=== PATIENT | female | born 1965 | race African-American/Black ===

== ENCOUNTER 2020-07-21 14:45 | Outpatient (CLI) | payer MEDICARE, MEDICAID | END 2020-07-21 14:46 | disposition home or self-care (01) | LOC: CSHULT 14:45 | PROVIDERS: ATTEND Physician Assistant | DX: E04.1 Nontoxic single thyroid nodule (principal) | CPT/HCPCS: 76536 ==

== ENCOUNTER 2020-08-19 20:42 | Emergency (ER) | payer MEDICARE, MEDICAID ==
[2020-08-19 21:25] LABS: #Eosinphils 0.4 10x3/uL (0.0-0.5); #Monocytes 0.4 10x3/uL (0.0-1.1); #Neutrophils 3.1 10x3/uL (1.5-8.4); %Basophils 0.5 % (0.0-2.0); %Eosinophils 7.1 % (0.0-6.0); %Lymphocytes 32.8 % (18.0-47.0); %Monocytes 7.3 % (0.0-10.0); Hemoglobin 12.5 g/dL (12.0-15.5); Mean Corpuscular HGB CONC 34.2 g/dL (32.0-36.0); Mean Corpuscular Hemoglobin 31.3 pg (27.0-33.0); Mean Corpuscular Volume 91.5 fl (81.6-98.3); Mean Platelet Volume 9.4 fl (7.4-10.4); Platelet Count 271 10x3/uL (150-450)
[2020-08-19 21:42] LABS: ALT (SGPT) 23 U/L (8-55); AST (SGOT) 19 U/L (5-34); Albumin 4.3 g/dL (3.5-5.0); Alkaline Phosphatase 56 U/L (40-110); Anion Gap 15 mmol/L (10-20); BUN (Urea Nitrogen) 10 mg/dL (9.8-20.1); Bilirubin, Total 0.2 mg/dL (0.2-1.2); Calc. Creatinine Clearance 0 mL/min (70-130); Calcium 9.1 mg/dL (7.8-10.44); Carbon Dioxide 24 mmol/L (22-29); Chloride 106 mmol/L (98-107); Globulin 3.5 g/dL (2.4-3.5); Glucose 166 mg/dL (70-105); Potassium 3.5 mmol/L (3.5-5.1); Protein, Total 7.8 g/dL (6.0-8.3); Sodium 141 mmol/L (136-145)
[2020-08-19] MEDS ORDERED: Ketorolac Tromethamine 15 MG/ML VIAL ONE (21:49)
== END 2020-08-19 23:20 | disposition home or self-care (01) ==
LOC: CSHERS 20:42
DX: M79.605 Pain in left leg (principal); M79.604 Pain in right leg; G35 Multiple sclerosis; E78.5 Hyperlipidemia, unspecified; I10 Essential (primary) hypertension; J45.909 Unspecified asthma, uncomplicated; Z79.899 Other long term (current) drug therapy
CPT/HCPCS: 71045; 80053; 83880; 84484; 85025; 93005; 94760; 96374; J1885

== ENCOUNTER 2021-02-10 17:20 | Emergency (ER) | payer MEDICARE, MEDICAID ==
[2021-02-10 19:34] LABS: #Eosinphils 0.2 10x3/uL (0.0-0.5); #Monocytes 0.5 10x3/uL (0.0-1.1); %Basophils 0.3 % (0.0-2.0); %Eosinophils 3.2 % (0.0-6.0); %Lymphocytes 24.4 % (18.0-47.0); %Neutrophils 65.8 % (40.0-75.0); Hemoglobin 12.5 g/dL (12.0-15.5); Mean Corpuscular HGB CONC 33.5 g/dL (32.0-36.0); Mean Corpuscular Hemoglobin 30.5 pg (27.0-33.0); Mean Platelet Volume 9.4 fl (7.4-10.4); Platelet Count 307 10x3/uL (150-450); RBC Distribution Width 13.2 % (11.5-14.5); White Blood Cell (WBC) Count 7.5 10x3/uL (3.5-10.5)
[2021-02-10 19:41] LABS: ALT (SGPT) 19 U/L (8-55); AST (SGOT) 17 U/L (5-34); Albumin 4.4 g/dL (3.5-5.0); Alkaline Phosphatase 72 U/L (40-110); Anion Gap 14 mmol/L (10-20); BUN (Urea Nitrogen) 10 mg/dL (9.8-20.1); Bilirubin, Total 0.2 mg/dL (0.2-1.2); Calc. Creatinine Clearance 0 mL/min (70-130); Calcium 9.4 mg/dL (7.8-10.44); Carbon Dioxide 26 mmol/L (22-29); Chloride 105 mmol/L (98-107); Globulin 3.3 g/dL (2.4-3.5); Glucose 95 mg/dL (70-105); Lipase 9 U/L (8-78); Potassium 4.1 mmol/L (3.5-5.1); Protein, Total 7.7 g/dL (6.0-8.3); Sodium 141 mmol/L (136-145)
[2021-02-10 20:25] LABS: Bilirubin Neg (Negative); Blood, Urine Negative (Negative); Clarity Clear (Clear); Glucose, Urine (Dipstick) Normal (Negative); Ketone, Urine Negative (Negative); Leukocyte Negative (Negative); Nitrite Negative (Negative); Protein, Urine (Dipstick) 30 mg/dl (Neg-Trace); Specific Gravity, Urine 1.015 (1.002-1.036); Urobilinogen Normal mg/dL (Less than 2); pH, Urine 6.5 (5.0-9.0)
[2021-02-10 20:36] LABS: Bacteria/HPF None Seen HPF (None Seen); Mucous/LPF Rare LPF (<2+); RBC/HPF 0-3 HPF (0-3); Squamous Epithelial 0-3 HPF (0-3); WBC/HPF 0-3 HPF (0-3)
== END 2021-02-10 21:51 | disposition home or self-care (01) ==
LOC: CSHERS 17:20
DX: K11.20 Sialoadenitis, unspecified (principal); G35 Multiple sclerosis; E78.5 Hyperlipidemia, unspecified; I10 Essential (primary) hypertension; J45.909 Unspecified asthma, uncomplicated; M32.9 Systemic lupus erythematosus, unspecified; Z79.899 Other long term (current) drug therapy
CPT/HCPCS: 36415; 74177; 80053; 81003; 81015; 83690; 85025; 87081; 87430

== ENCOUNTER 2021-03-15 12:44 | Emergency (ER) | payer MEDICARE, MEDICAID ==
[2021-03-15] MEDS ORDERED: Dexamethasone 10 MG/ML VIAL ONE (13:04)
[2021-03-15] MEDS ORDERED: Dexamethasone 4 mg/ml Vial ONE (13:04)
[2021-03-15] MEDS ORDERED: Ventolin HFA Inhaler 60 PUFF INHALER ONE (13:05)
== END 2021-03-15 14:13 | disposition home or self-care (01) ==
LOC: CSHERS 12:44
DX: J45.909 Unspecified asthma, uncomplicated (principal); I10 Essential (primary) hypertension; E78.5 Hyperlipidemia, unspecified; M32.9 Systemic lupus erythematosus, unspecified; G35 Multiple sclerosis; Z79.899 Other long term (current) drug therapy
CPT/HCPCS: 71045; 93005; 96372; J1100; J7620

== ENCOUNTER 2021-07-02 15:47 | Emergency (ER) | payer MEDICAID, MEDICARE ==
[2021-07-02 16:45] LABS: #Eosinphils 0.1 10x3/uL (0.0-0.5); #Monocytes 0.4 10x3/uL (0.0-1.1); #Neutrophils 3.5 10x3/uL (1.5-8.4); %Basophils 0.5 % (0.0-2.0); %Lymphocytes 33.7 % (18.0-47.0); %Monocytes 6.1 % (0.0-10.0); %Neutrophils 57.5 % (40.0-75.0); Hemoglobin 13.9 g/dL (12.0-15.5); Mean Corpuscular HGB CONC 33.7 g/dL (32.0-36.0); Mean Corpuscular Volume 89.2 fl (81.6-98.3); Mean Platelet Volume 9.4 fl (7.4-10.4); Platelet Count 332 10x3/uL (150-450); RBC Distribution Width 13.1 % (11.5-14.5); Red Blood Cell (RBC) Count 4.63 10x6/uL (3.90-5.03)
[2021-07-02] MEDS ORDERED: methylPREDNISolone Sod Succ/PF 125 MG/2 ML VIAL ONE (16:49)
[2021-07-02] MEDS ORDERED: Ketorolac Tromethamine 30 MG/ML VIAL ONE (16:50)
[2021-07-02] MEDS ORDERED: Morphine 4 MG/ML VIAL ONE (16:50)
[2021-07-02 16:55] LABS: ALT (SGPT) 22 U/L (8-55); AST (SGOT) 21 U/L (5-34); Albumin 4.4 g/dL (3.5-5.0); Alkaline Phosphatase 66 U/L (40-110); Anion Gap 15 mmol/L (10-20); BUN (Urea Nitrogen) 11 mg/dL (9.8-20.1); Bilirubin, Total 0.3 mg/dL (0.2-1.2); Calc. Creatinine Clearance 0 mL/min (70-130); Calcium 9.7 mg/dL (7.8-10.44); Carbon Dioxide 21 mmol/L (22-29); Chloride 108 mmol/L (98-107); Globulin 3.9 g/dL (2.4-3.5); Glucose 106 mg/dL (70-105); Potassium 3.9 mmol/L (3.5-5.1); Protein, Total 8.3 g/dL (6.0-8.3); Sodium 140 mmol/L (136-145)
[2021-07-02 16:57] LABS: CK (CPK) 244 U/L (29-168); CRP (Inflammatory) Less than 0.50 mg/dL (= or < 0.5)
[2021-07-02 17:12] LABS: BHCG - Serum Negative (NEGATIVE); Pregs Control Background? CLEAR/WHITE (CLR/WHITE); Pregs Control Bar Appear? YES (CONTROL BAR)
== END 2021-07-02 18:19 | disposition home or self-care (01) ==
LOC: CSHERS 15:47
DX: G35 Multiple sclerosis (principal); E78.5 Hyperlipidemia, unspecified; I10 Essential (primary) hypertension
CPT/HCPCS: 36415; 80053; 82550; 83605; 84703; 85025; 86140; 93005; 96374; 96375; J1885; J2270; J2930

== ENCOUNTER 2022-01-08 15:37 | Emergency (ER) | payer MEDICARE, MEDICAID | END 2022-01-08 16:39 | disposition left against medical advice (07) | LOC: CSHERS 15:37 | DX: Z53.21 Procedure and treatment not carried out due to patient leaving prior to being seen by health care provider (principal) ==

== ENCOUNTER 2022-01-08 17:03 | Emergency (ER) | payer MEDICARE, MEDICAID | END 2022-01-08 18:35 | disposition home or self-care (01) | LOC: CSHERS 17:03 | DX: S40.862A Insect bite (nonvenomous) of left upper arm, initial encounter (principal); S40.861A Insect bite (nonvenomous) of right upper arm, initial encounter; W57.XXXA Bitten or stung by nonvenomous insect and other nonvenomous arthropods, initial encounter | CPT/HCPCS: 99282 ==

== ENCOUNTER 2022-01-28 14:25 | Inpatient (IN) | payer OTHER, MEDICAID ==
[2022-01-28 15:14] LABS: #Eosinphils 0.2 10x3/uL (0.0-0.5); #Monocytes 0.3 10x3/uL (0.0-1.1); #Neutrophils 3.8 10x3/uL (1.5-8.4); %Basophils 0.6 % (0.0-2.0); %Eosinophils 3.8 % (0.0-6.0); %Lymphocytes 29.8 % (18.0-47.0); %Monocytes 5.4 % (0.0-10.0); %Neutrophils 60.2 % (40.0-75.0); Hemoglobin 13.5 g/dL (12.0-15.5); Mean Corpuscular HGB CONC 34.5 g/dL (32.0-36.0); Mean Corpuscular Volume 89.7 fl (81.6-98.3); Mean Platelet Volume 9.3 fl (7.4-10.4); Platelet Count 307 10x3/uL (150-450); RBC Distribution Width 12.9 % (11.5-14.5); Red Blood Cell (RBC) Count 4.36 10x6/uL (3.90-5.03); White Blood Cell (WBC) Count 6.3 10x3/uL (3.5-10.5)
[2022-01-28] MEDS ORDERED: Morphine 4 MG/ML VIAL ONE ×2 (15:26→16:40)
[2022-01-28] MEDS ORDERED: Ondansetron PF 4 MG/2 ML Vial ONE (15:26)
[2022-01-28 15:33] LABS: ALT (SGPT) 14 U/L (8-55); AST (SGOT) 18 U/L (5-34); Albumin 4.2 g/dL (3.5-5.0); Alkaline Phosphatase 60 U/L (40-110); Anion Gap 12 mmol/L (10-20); BUN (Urea Nitrogen) 13 mg/dL (9.8-20.1); Bilirubin, Total 0.3 mg/dL (0.2-1.2); Calc. Creatinine Clearance 0 mL/min (70-130); Calcium 9.7 mg/dL (7.8-10.44); Carbon Dioxide 25 mmol/L (22-29); Chloride 107 mmol/L (98-107); Estimated GFR 68; Globulin 3.2 g/dL (2.4-3.5); Glucose 105 mg/dL (70-105); Potassium 3.9 mmol/L (3.5-5.1); Protein, Total 7.4 g/dL (6.0-8.3); Sodium 140 mmol/L (136-145)
[2022-01-28] MEDS ORDERED: methylPREDNISolone Sod Succ 1 GM in Sodium Chloride 0.9% 250 ML 250 ML IVPB SCH (16:00)
[2022-01-28] MEDS ORDERED: Ketorolac Tromethamine 30 MG/ML VIAL ONE (16:40)
[2022-01-28] MEDS ORDERED: Acetaminophen 650 MG Suppository PR PRN (18:07)
[2022-01-28] MEDS ORDERED: Ondansetron PF 4 MG/2 ML Vial IVP PRN (18:07)
[2022-01-28] MEDS ORDERED: Ondansetron ODT 4 MG TAB PO PRN (18:07)
[2022-01-28] MEDS ORDERED: Acetaminophen 325 MG TAB PO PRN (18:07)
[2022-01-28] MEDS ORDERED: Bisacodyl 5 MG TAB PO PRN (18:07)
[2022-01-28] MEDS ORDERED: Senokot S 8.6-50 MG TAB PO PRN (18:07)
[2022-01-28] MEDS ORDERED: Albuterol Sulfate 2.5 mg/3 ml Neb EZPAP PRN (18:27)
[2022-01-28] MEDS ORDERED: HYDROcodone/Acetaminophen 10/325 mg Tablet ONE (20:23)
[2022-01-28 20:38] LABS: Bilirubin Neg (Negative); Blood, Urine Negative (Negative); Clarity Clear (Clear); Glucose, Urine (Dipstick) Normal (Negative); Ketone, Urine Negative (Negative); Leukocyte Negative (Negative); Nitrite Negative (Negative); Protein, Urine (Dipstick) 15 mg/dl (Neg-Trace); Specific Gravity, Urine 1.015 (1.005-1.030); Urobilinogen Normal mg/dL (Less than 2); pH, Urine 6.5 (5.0-9.0)
[2022-01-29] MEDS ORDERED: Atorvastatin Calcium 10 MG TAB ONE (01:32)
[2022-01-29] MEDS ORDERED: Acetaminophen 325 MG TAB ONE (01:34)
[2022-01-29] MEDS ORDERED: Gabapentin 300 MG CAP ONE ×2 (01:34→07:50)
[2022-01-29] MEDS: Gabapentin 300 MG CAP PO SCH ×4 (03:00→22:30)
[2022-01-29] MEDS: DULoxetine 30 MG CAP PO SCH ×2 (03:00→22:00)
[2022-01-29] MEDS: Atorvastatin Calcium 10 MG TAB PO SCH ×2 (03:00→22:00)
[2022-01-29] MEDS: tiZANidine HCl 4 MG TAB PO SCH ×4 (03:00→22:00)
[2022-01-29 04:10] LABS: Anion Gap 14 mmol/L (10-20); BUN (Urea Nitrogen) 13 mg/dL (9.8-20.1); Calc. Creatinine Clearance 0 mL/min (70-130); Calcium 9.2 mg/dL (7.8-10.44); Carbon Dioxide 22 mmol/L (22-29); Chloride 106 mmol/L (98-107); Estimated GFR 65; Glucose 237 mg/dL (70-105); Potassium 4.3 mmol/L (3.5-5.1); Sodium 138 mmol/L (136-145)
[2022-01-29 04:23] LABS: Hemoglobin 12.5 g/dL (12.0-15.5); Mean Corpuscular HGB CONC 34.5 g/dL (32.0-36.0); Mean Corpuscular Hemoglobin 31.2 pg (27.0-33.0); Mean Corpuscular Volume 90.3 fl (81.6-98.3); Mean Platelet Volume 9.4 fl (7.4-10.4); Platelet Count 290 10x3/uL (150-450); RBC Distribution Width 12.8 % (11.5-14.5); Red Blood Cell (RBC) Count 4.01 10x6/uL (3.90-5.03); White Blood Cell (WBC) Count 8.7 10x3/uL (3.5-10.5)
[2022-01-29 06:47] LABS: MDiff Complete? YES
[2022-01-29 06:50] LABS: Lymphocytes 9 % (21-51); Neutrophil 90 % (42-75); Reactive Lymphocytes 1 % (0-10)
[2022-01-29 06:52] LABS: Diff Comment (RBC Morph SCRN) NORMAL; Platelet Morphology Comment Appears Adequate
[2022-01-29] MEDS ORDERED: Enoxaparin Sodium 40 MG/0.4 ML SYRINGE ONE (07:47)
[2022-01-29] MEDS ORDERED: Amlodipine 5 MG TAB ONE (07:48)
[2022-01-29] MEDS: Amlodipine 10 MG TAB PO SCH (08:02)
[2022-01-29] MEDS: Hydrochlorothiazide 25 MG TAB PO SCH (08:03)
[2022-01-29] MEDS: Enoxaparin Sodium 40 MG/0.4 ML SYRINGE SC SCH (08:03)
[2022-01-29] MEDS ORDERED: methylPREDNISolone Sod Succ 1 GM in Sodium Chloride 0.9% 250 ML 250 ML IVPB SCH (09:00)
[2022-01-29] MEDS: HYDROcodone/Acetaminophen 5/325 mg Tablet PO PRN ×2 (11:36→17:47)
[2022-01-29] MEDS ORDERED: Magnevist 469MG/ML 20 ML VIAL ONE (14:20)
[2022-01-29] MEDS ORDERED: FLU VACC QS2022-23(6MOS UP)/PF 60 MCG/0.5 ML SYRINGE IM ONE (15:30)
[2022-01-29] MEDS: methylPREDNISolone Sod Succ 1 GM in Sodium Chloride 0.9% 250 ML 250 ML IVPB SCH (17:41)
[2022-01-29] MEDS ORDERED: Ketorolac Tromethamine 30 MG/ML VIAL IVP SCH (20:15)
[2022-01-29 20:58] VITALS: BMI 36.1
[2022-01-30] MEDS: HYDROcodone/Acetaminophen 5/325 mg Tablet PO PRN (04:13)
[2022-01-30 04:49] LABS: Anion Gap 16 mmol/L (10-20); BUN (Urea Nitrogen) 14 mg/dL (9.8-20.1); Calc. Creatinine Clearance 108 mL/min (70-130); Calcium 9.6 mg/dL (7.8-10.44); Carbon Dioxide 23 mmol/L (22-29); Chloride 105 mmol/L (98-107); Estimated GFR 79; Glucose 165 mg/dL (70-105); Potassium 4.1 mmol/L (3.5-5.1); Sodium 140 mmol/L (136-145)
[2022-01-30 04:54] LABS: Hemoglobin 12.5 g/dL (12.0-15.5); Mean Corpuscular HGB CONC 34.5 g/dL (32.0-36.0); Mean Corpuscular Volume 89.8 fl (81.6-98.3); Platelet Count 317 10x3/uL (150-450); RBC Distribution Width 12.7 % (11.5-14.5); Red Blood Cell (RBC) Count 4.03 10x6/uL (3.90-5.03); White Blood Cell (WBC) Count 23.6 10x3/uL (3.5-10.5)
[2022-01-30 06:02] LABS: MDiff Complete? YES
[2022-01-30 06:09] LABS: Band 2 % (5-11); Lymphocytes 2 % (21-51); Monocytes 2 % (0-10); Neutrophil 94 % (42-75)
[2022-01-30 06:10] LABS: Diff Comment (RBC Morph SCRN) NORMAL; Platelet Morphology Comment Appears Adequate
[2022-01-30] MEDS ORDERED: Ibuprofen 400 MG TAB PO SCH (06:45)
[2022-01-30] MEDS: Ketorolac Tromethamine 10 MG TAB PO PRN ×3 (09:17→21:52)
[2022-01-30] MEDS: Gabapentin 300 MG CAP PO SCH ×3 (09:17→21:55)
[2022-01-30] MEDS: Hydrochlorothiazide 25 MG TAB PO SCH (09:18)
[2022-01-30] MEDS: Amlodipine 10 MG TAB PO SCH (09:18)
[2022-01-30] MEDS: tiZANidine HCl 4 MG TAB PO SCH ×3 (09:18→21:51)
[2022-01-30] MEDS: Enoxaparin Sodium 40 MG/0.4 ML SYRINGE SC SCH (09:19)
[2022-01-30] MEDS: methylPREDNISolone Sod Succ 1 GM in Sodium Chloride 0.9% 250 ML 250 ML IVPB SCH (17:35)
[2022-01-30] MEDS: DULoxetine 30 MG CAP PO SCH (21:51)
[2022-01-30] MEDS: Atorvastatin Calcium 10 MG TAB PO SCH (21:52)
[2022-01-30] MEDS ORDERED: Zolpidem Tartrate 5 MG TAB PO SCH (22:30)
[2022-01-30] MEDS ORDERED: hydrOXYzine 10 MG TAB PO SCH (22:30)
[2022-01-31] MEDS: HYDROcodone/Acetaminophen 5/325 mg Tablet PO PRN ×2 (04:20→21:38)
[2022-01-31 06:50] LABS: #Monocytes 0.2 10x3/uL (0.0-1.1); #Neutrophils 18.1 10x3/uL (1.5-8.4); %Basophils 0.1 % (0.0-2.0); %Lymphocytes 5.2 % (18.0-47.0); %Neutrophils 92.3 % (40.0-75.0); Hemoglobin 13.1 g/dL (12.0-15.5); Mean Corpuscular HGB CONC 34.9 g/dL (32.0-36.0); Mean Corpuscular Volume 88.7 fl (81.6-98.3); Mean Platelet Volume 9.7 fl (7.4-10.4); Platelet Count 311 10x3/uL (150-450); RBC Distribution Width 12.5 % (11.5-14.5); Red Blood Cell (RBC) Count 4.23 10x6/uL (3.90-5.03); White Blood Cell (WBC) Count 19.6 10x3/uL (3.5-10.5)
[2022-01-31 06:52] LABS: Anion Gap 12 mmol/L (10-20); BUN (Urea Nitrogen) 16 mg/dL (9.8-20.1); Calc. Creatinine Clearance 112 mL/min (70-130); Carbon Dioxide 30 mmol/L (22-29); Chloride 99 mmol/L (98-107); Estimated GFR 83; Glucose 153 mg/dL (70-105); Potassium 4.3 mmol/L (3.5-5.1); Sodium 137 mmol/L (136-145)
[2022-01-31] MEDS: tiZANidine HCl 4 MG TAB PO SCH ×3 (08:45→21:37)
[2022-01-31] MEDS: Hydrochlorothiazide 25 MG TAB PO SCH (08:45)
[2022-01-31] MEDS: Gabapentin 300 MG CAP PO SCH ×3 (08:45→21:37)
[2022-01-31] MEDS: Enoxaparin Sodium 40 MG/0.4 ML SYRINGE SC SCH (08:45)
[2022-01-31] MEDS: Amlodipine 10 MG TAB PO SCH (08:45)
[2022-01-31] MEDS: Ketorolac Tromethamine 10 MG TAB PO PRN ×3 (08:53→21:39)
[2022-01-31] MEDS: methylPREDNISolone Sod Succ 1 GM in Sodium Chloride 0.9% 250 ML 250 ML IVPB SCH (16:05)
[2022-01-31] MEDS ORDERED: hydrOXYzine 10 MG TAB PO SCH (21:00)
[2022-01-31] MEDS ORDERED: Zolpidem Tartrate 5 MG TAB PO SCH (21:00)
[2022-01-31] MEDS: DULoxetine 30 MG CAP PO SCH (21:38)
[2022-01-31] MEDS: Atorvastatin Calcium 10 MG TAB PO SCH (21:38)
[2022-02-01] MEDS: HYDROcodone/Acetaminophen 5/325 mg Tablet PO PRN ×3 (04:19→14:59)
[2022-02-01] MEDS: Ketorolac Tromethamine 10 MG TAB PO PRN ×2 (04:20→10:26)
[2022-02-01 04:28] LABS: Anion Gap 14 mmol/L (10-20); BUN (Urea Nitrogen) 22 mg/dL (9.8-20.1); Calc. Creatinine Clearance 94 mL/min (70-130); Calcium 9.4 mg/dL (7.8-10.44); Carbon Dioxide 29 mmol/L (22-29); Chloride 97 mmol/L (98-107); Estimated GFR 67; Glucose 234 mg/dL (70-105); Sodium 136 mmol/L (136-145)
[2022-02-01 04:55] LABS: #Monocytes 0.3 10x3/uL (0.0-1.1); #Neutrophils 14.3 10x3/uL (1.5-8.4); %Basophils 0.2 % (0.0-2.0); %Monocytes 2.1 % (0.0-10.0); %Neutrophils 89.7 % (40.0-75.0); Hemoglobin 12.7 g/dL (12.0-15.5); Mean Corpuscular HGB CONC 35.4 g/dL (32.0-36.0); Mean Corpuscular Hemoglobin 31.3 pg (27.0-33.0); Mean Corpuscular Volume 88.4 fl (81.6-98.3); Mean Platelet Volume 10.2 fl (7.4-10.4); Platelet Count 317 10x3/uL (150-450); RBC Distribution Width 12.1 % (11.5-14.5); Red Blood Cell (RBC) Count 4.06 10x6/uL (3.90-5.03); White Blood Cell (WBC) Count 15.9 10x3/uL (3.5-10.5)
[2022-02-01] MEDS: tiZANidine HCl 4 MG TAB PO SCH ×2 (10:09→14:59)
[2022-02-01] MEDS: Gabapentin 300 MG CAP PO SCH ×2 (10:09→14:58)
[2022-02-01] MEDS: Amlodipine 10 MG TAB PO SCH (10:09)
[2022-02-01] MEDS: Hydrochlorothiazide 25 MG TAB PO SCH (10:10)
[2022-02-01] MEDS: Enoxaparin Sodium 40 MG/0.4 ML SYRINGE SC SCH (10:10)
[2022-02-01 13:10] VITALS: TEMP 98.8
[2022-02-01 14:17] VITALS: BP 169/100
== END 2022-02-01 16:50 | disposition home or self-care (01) | DRG 60 ==
LOC: CSHERS 14:25 → CSHERHOLD 01-29 01:18 → CSHTELE 01-29 09:21
PROVIDERS: ADMIT Family Medicine; ATTEND Internal Medicine
DX: G35 Multiple sclerosis (principal); I10 Essential (primary) hypertension; J45.909 Unspecified asthma, uncomplicated; E66.9 Obesity, unspecified; R53.1 Weakness; E78.5 Hyperlipidemia, unspecified; F41.9 Anxiety disorder, unspecified; M79.2 Neuralgia and neuritis, unspecified; R29.898 Other symptoms and signs involving the musculoskeletal system; F32.9 Major depressive disorder, single episode, unspecified; R73.9 Hyperglycemia, unspecified; D72.829 Elevated white blood cell count, unspecified; Z20.822 Contact with and (suspected) exposure to COVID-19; Z90.710 Acquired absence of both cervix and uterus; Z88.5 Allergy status to narcotic agent; Z98.890 Other specified postprocedural states; Z98.51 Tubal ligation status; Z79.899 Other long term (current) drug therapy; Z68.36 Body mass index [BMI] 36.0-36.9, adult; Z98.1 Arthrodesis status; Z90.49 Acquired absence of other specified parts of digestive tract; Z88.8 Allergy status to other drugs, medicaments and biological substances; Z82.49 Family history of ischemic heart disease and other diseases of the circulatory system; Z82.5 Family history of asthma and other chronic lower respiratory diseases
CPT/HCPCS: 36415; 36416; 70450; 70553; 71045; 80048; 80053; 81003; 84702; 85025; 87077; 87086; 94760; 96374; 96375; 96376; A9579; J1650; J1885; J2270; J2405; J2930; J7050; U0003; U0005

== ENCOUNTER 2022-02-04 17:00 | Emergency (ER) | payer MEDICARE, MEDICAID ==
[2022-02-04 17:46] LABS: #Eosinphils 0.3 10x3/uL (0.0-0.5); #Monocytes 0.6 10x3/uL (0.0-1.1); #Neutrophils 5.6 10x3/uL (1.5-8.4); %Basophils 0.3 % (0.0-2.0); %Eosinophils 3.1 % (0.0-6.0); %Lymphocytes 28.1 % (18.0-47.0); %Neutrophils 61.3 % (40.0-75.0); Hemoglobin 12.8 g/dL (12.0-15.5); Mean Corpuscular HGB CONC 35.2 g/dL (32.0-36.0); Mean Corpuscular Hemoglobin 31.4 pg (27.0-33.0); Mean Corpuscular Volume 89.2 fl (81.6-98.3); Platelet Count 312 10x3/uL (150-450); RBC Distribution Width 12.8 % (11.5-14.5); Red Blood Cell (RBC) Count 4.08 10x6/uL (3.90-5.03); White Blood Cell (WBC) Count 9.1 10x3/uL (3.5-10.5)
[2022-02-04 18:00] LABS: ALT (SGPT) 36 U/L (8-55); AST (SGOT) 19 U/L (5-34); Albumin 3.9 g/dL (3.5-5.0); Alkaline Phosphatase 60 U/L (40-110); Anion Gap 17 mmol/L (10-20); BUN (Urea Nitrogen) 14 mg/dL (9.8-20.1); Bilirubin, Total 0.2 mg/dL (0.2-1.2); Calc. Creatinine Clearance 0 mL/min (70-130); Calcium 9.3 mg/dL (7.8-10.44); Carbon Dioxide 26 mmol/L (22-29); Chloride 104 mmol/L (98-107); Estimated GFR 72; Globulin 3.1 g/dL (2.4-3.5); Glucose 140 mg/dL (70-105); Potassium 3.5 mmol/L (3.5-5.1); Sodium 143 mmol/L (136-145)
[2022-02-04] MEDS ORDERED: HYDROcodone/Acetaminophen 10/325 mg Tablet ONE (19:22)
[2022-02-04] MEDS ORDERED: methylPREDNISolone Sod Succ 1,000 MG in Sodium Chloride 0.9% 100 ML IVPB SCH (20:45)
== END 2022-02-04 20:45 | disposition home or self-care (01) ==
LOC: CSHERS 17:00
DX: G35 Multiple sclerosis (principal); I10 Essential (primary) hypertension; E78.5 Hyperlipidemia, unspecified; F17.290 Nicotine dependence, other tobacco product, uncomplicated
CPT/HCPCS: 80053; 85025; 94760; J2930; J3490

== ENCOUNTER 2022-02-18 07:51 | Emergency (ER) | payer OTHER, MEDICAID ==
[2022-02-18] MEDS ORDERED: methylPREDNISolone Sod Succ/PF 125 MG/2 ML VIAL ONE (09:21)
[2022-02-18] MEDS ORDERED: Morphine 4 MG/ML VIAL ONE (09:22)
[2022-02-18 09:51] LABS: #Eosinphils 0.1 10x3/uL (0.0-0.5); #Monocytes 0.7 10x3/uL (0.0-1.1); #Neutrophils 8.7 10x3/uL (1.5-8.4); %Basophils 0.2 % (0.0-2.0); %Eosinophils 0.5 % (0.0-6.0); %Lymphocytes 19.4 % (18.0-47.0); %Monocytes 6.1 % (0.0-10.0); %Neutrophils 73.2 % (40.0-75.0); Mean Corpuscular HGB CONC 35.1 g/dL (32.0-36.0); Mean Corpuscular Hemoglobin 30.9 pg (27.0-33.0); Mean Corpuscular Volume 88.1 fl (81.6-98.3); Mean Platelet Volume 9.1 fl (7.4-10.4); Platelet Count 298 10x3/uL (150-450); RBC Distribution Width 13.3 % (11.5-14.5); Red Blood Cell (RBC) Count 4.53 10x6/uL (3.90-5.03); White Blood Cell (WBC) Count 11.9 10x3/uL (3.5-10.5)
[2022-02-18 10:08] LABS: Bilirubin Neg (Negative); Blood, Urine Negative (Negative); Clarity Sl. Cloudy (Clear); Glucose, Urine (Dipstick) Normal (Negative); Ketone, Urine Negative (Negative); Leukocyte Negative (Negative); Nitrite Negative (Negative); Protein, Urine (Dipstick) Negative (Neg-Trace); Urobilinogen Normal mg/dL (Less than 2); pH, Urine 6.5 (5.0-9.0)
[2022-02-18 10:09] LABS: ALT (SGPT) 24 U/L (8-55); AST (SGOT) 12 U/L (5-34); Albumin 4.1 g/dL (3.5-5.0); Alkaline Phosphatase 64 U/L (40-110); Anion Gap 13 mmol/L (10-20); BUN (Urea Nitrogen) 11 mg/dL (9.8-20.1); Bilirubin, Total 0.6 mg/dL (0.2-1.2); Calc. Creatinine Clearance 0 mL/min (70-130); Calcium 9.5 mg/dL (7.8-10.44); Carbon Dioxide 29 mmol/L (22-29); Chloride 98 mmol/L (98-107); Estimated GFR 66; Globulin 2.6 g/dL (2.4-3.5); Glucose 162 mg/dL (70-105); Potassium 3.1 mmol/L (3.5-5.1); Protein, Total 6.7 g/dL (6.0-8.3); Sodium 137 mmol/L (136-145)
[2022-02-18] MEDS ORDERED: Metoprolol Tartrate 5 MG/5 ML VIAL ONE (12:28)
[2022-02-18 12:33] LABS: Lactic Acid 1.4 mmol/L (0.5-2.2)
== END 2022-02-18 13:56 | disposition home or self-care (01) ==
LOC: CSHERS 07:51
DX: G35 Multiple sclerosis (principal); J30.9 Allergic rhinitis, unspecified; E86.0 Dehydration; I10 Essential (primary) hypertension; E78.5 Hyperlipidemia, unspecified; F17.290 Nicotine dependence, other tobacco product, uncomplicated
CPT/HCPCS: 36415; 80053; 81003; 83605; 84443; 85025; 87040; 96361; 96374; 96375; J2270; J2930

== ENCOUNTER 2022-02-28 11:44 | Emergency (ER) | payer OTHER ==
[2022-02-28] MEDS ORDERED: methylPREDNISolone Sod Succ/PF 125 MG/2 ML VIAL ONE (12:50)
[2022-02-28 12:59] LABS: #Eosinphils 0.1 10x3/uL (0.0-0.5); #Monocytes 0.4 10x3/uL (0.0-1.1); #Neutrophils 4.4 10x3/uL (1.5-8.4); %Basophils 0.3 % (0.0-2.0); %Eosinophils 1.7 % (0.0-6.0); %Monocytes 5.6 % (0.0-10.0); %Neutrophils 65.8 % (40.0-75.0); Hemoglobin 12.2 g/dL (12.0-15.5); Mean Corpuscular Hemoglobin 31.1 pg (27.0-33.0); Mean Corpuscular Volume 91.6 fl (81.6-98.3); Mean Platelet Volume 9.1 fl (7.4-10.4); Platelet Count 307 10x3/uL (150-450); RBC Distribution Width 14.1 % (11.5-14.5); Red Blood Cell (RBC) Count 3.92 10x6/uL (3.90-5.03); White Blood Cell (WBC) Count 6.6 10x3/uL (3.5-10.5)
[2022-02-28 13:13] LABS: ALT (SGPT) 22 U/L (8-55); AST (SGOT) 14 U/L (5-34); Alkaline Phosphatase 70 U/L (40-110); Anion Gap 14 mmol/L (10-20); BUN (Urea Nitrogen) 11 mg/dL (9.8-20.1); Bilirubin, Total 0.3 mg/dL (0.2-1.2); CK (CPK) 60 U/L (29-168); Calc. Creatinine Clearance 0 mL/min (70-130); Calcium 9.5 mg/dL (7.8-10.44); Carbon Dioxide 27 mmol/L (22-29); Chloride 104 mmol/L (98-107); Estimated GFR 57; Globulin 2.8 g/dL (2.4-3.5); Glucose 166 mg/dL (70-105); Potassium 3.7 mmol/L (3.5-5.1); Protein, Total 6.8 g/dL (6.0-8.3); Sodium 141 mmol/L (136-145)
[2022-02-28] MEDS ORDERED: Morphine 4 MG/ML VIAL ONE (13:23)
[2022-02-28] MEDS ORDERED: Ondansetron PF 4 MG/2 ML Vial ONE (13:23)
== END 2022-02-28 15:20 | disposition home or self-care (01) ==
LOC: CSHERS 11:44
DX: G35 Multiple sclerosis (principal); E78.5 Hyperlipidemia, unspecified; I10 Essential (primary) hypertension; F17.290 Nicotine dependence, other tobacco product, uncomplicated
CPT/HCPCS: 36415; 80053; 82550; 85025; 96374; 96375; J2270; J2405; J2930

== ENCOUNTER 2022-12-14 11:56 | Inpatient (IN) | payer MEDICARE, OTHER ==
[2022-12-14 13:12] LABS: #Eosinphils 0.2 10x3/uL (0.0-0.5); #Monocytes 0.4 10x3/uL (0.0-1.1); #Neutrophils 2.4 10x3/uL (1.5-8.4); %Basophils 0.6 % (0.0-2.0); %Eosinophils 4.3 % (0.0-6.0); %Lymphocytes 35.2 % (18.0-47.0); %Monocytes 8.4 % (0.0-10.0); %Neutrophils 51.5 % (40.0-75.0); Hematocrit 39.7 % (34.9-44.5); Hemoglobin 13.3 g/dL (12.0-15.5); Mean Corpuscular HGB CONC 33.5 g/dL (32.0-36.0); Mean Corpuscular Volume 89.6 fl (81.6-98.3); Mean Platelet Volume 9.1 fl (7.4-10.4); Platelet Count 355 10x3/uL (150-450); RBC Distribution Width 12.6 % (11.5-14.5); Red Blood Cell (RBC) Count 4.43 10x6/uL (3.90-5.03); White Blood Cell (WBC) Count 4.7 10x3/uL (3.5-10.5)
[2022-12-14 13:26] LABS: ALT (SGPT) 15 U/L (8-55); AST (SGOT) 13 U/L (5-34); Albumin 4.2 g/dL (3.5-5.0); Alkaline Phosphatase 71 U/L (40-110); Anion Gap 14 mmol/L (10-20); BUN (Urea Nitrogen) 10 mg/dL (9.8-20.1); Bilirubin, Total 0.2 mg/dL (0.2-1.2); Calc. Creatinine Clearance 0 mL/min (70-130); Calcium 9.7 mg/dL (7.8-10.44); Carbon Dioxide 25 mmol/L (22-29); Chloride 107 mmol/L (98-107); Estimated GFR 65; Globulin 2.7 g/dL (2.4-3.5); Glucose 93 mg/dL (70-105); Potassium 4.2 mmol/L (3.5-5.1); Protein, Total 6.9 g/dL (6.0-8.3); Sodium 142 mmol/L (136-145)
[2022-12-14] MEDS ORDERED: Metoclopramide HCl 10 MG/2 ML VIAL ONE (14:31)
[2022-12-14] MEDS ORDERED: methylPREDNISolone Sod Succ/PF 125 MG/2 ML VIAL ONE (14:31)
[2022-12-14] MEDS ORDERED: diphenhydrAMINE 50 MG/ML VIAL ONE (14:31)
[2022-12-14 15:02] LABS: Magnesium 1.9 mg/dL (1.6-2.6)
[2022-12-14 15:08] LABS: Troponin I Less than 0.010 ng/mL (< 0.028)
[2022-12-14 15:57] LABS: CRP (Inflammatory) 0.56 mg/dL (= or < 0.5)
[2022-12-14] MEDS ORDERED: Ondansetron ODT 4 MG TAB PO PRN (17:14)
[2022-12-14] MEDS ORDERED: Aspirin 81 mg Enteric Coated Tablet ONE (17:48)
[2022-12-14 18:05] VITALS: BMI 35.6
[2022-12-14] MEDS: Gabapentin 300 MG CAP PO SCH (20:30)
[2022-12-14] MEDS: Atorvastatin Calcium 40 MG TAB PO SCH (20:30)
[2022-12-14] MEDS: traMADol HCl 50 MG TAB PO PRN (20:31)
[2022-12-15 05:21] LABS: #Monocytes 0.1 10x3/uL (0.0-1.1); #Neutrophils 7.4 10x3/uL (1.5-8.4); %Basophils 0.2 % (0.0-2.0); %Lymphocytes 11.9 % (18.0-47.0); %Monocytes 1.3 % (0.0-10.0); %Neutrophils 86.4 % (40.0-75.0); Hematocrit 38.1 % (34.9-44.5); Hemoglobin 12.7 g/dL (12.0-15.5); Mean Corpuscular HGB CONC 33.3 g/dL (32.0-36.0); Mean Corpuscular Hemoglobin 30.2 pg (27.0-33.0); Mean Corpuscular Volume 90.5 fl (81.6-98.3); Mean Platelet Volume 9.5 fl (7.4-10.4); Platelet Count 351 10x3/uL (150-450); RBC Distribution Width 12.4 % (11.5-14.5); Red Blood Cell (RBC) Count 4.21 10x6/uL (3.90-5.03); White Blood Cell (WBC) Count 8.6 10x3/uL (3.5-10.5)
[2022-12-15 05:35] LABS: ALT (SGPT) 10 U/L (8-55); AST (SGOT) 12 U/L (5-34); Albumin 3.9 g/dL (3.5-5.0); Alkaline Phosphatase 61 U/L (40-110); Anion Gap 16 mmol/L (10-20); BUN (Urea Nitrogen) 13 mg/dL (9.8-20.1); Bilirubin, Total 0.3 mg/dL (0.2-1.2); Calc. Creatinine Clearance 88 mL/min (70-130); Calcium 9.5 mg/dL (7.8-10.44); Carbon Dioxide 21 mmol/L (22-29); Cardiac Risk 3.7 (Less than 4.5); Chloride 107 mmol/L (98-107); Cholesterol 174 mg/dl (< 200 Desired); Estimated GFR 63; Globulin 2.8 g/dL (2.4-3.5); Glucose 202 mg/dL (70-105); HDL Cholesterol 47 mg/dL (>60 Neg Risk); LDL Cholesterol, Calculated 101 mg/dL; Potassium 4.9 mmol/L (3.5-5.1); Protein, Total 6.7 g/dL (6.0-8.3); Sodium 139 mmol/L (136-145); Triglycerides 128 mg/dL (Less than 150)
[2022-12-15] MEDS ORDERED: Aspirin 81 mg Enteric Coated Tablet PO SCH (09:00)
[2022-12-15] MEDS: Gabapentin 300 MG CAP PO SCH ×3 (09:47→21:28)
[2022-12-15] MEDS: Amlodipine 10 MG TAB PO SCH (09:50)
[2022-12-15] MEDS: traMADol HCl 50 MG TAB PO PRN (09:51)
[2022-12-15] MEDS: HYDROcodone/Acetaminophen 10/325 mg Tablet PO PRN ×2 (11:57→18:19)
[2022-12-15] MEDS: hydrOXYzine 25 MG TAB PO PRN ×2 (11:58→21:42)
[2022-12-15] MEDS: tiZANidine HCl 4 MG TAB PO SCH ×2 (14:10→21:28)
[2022-12-15] MEDS ORDERED: traMADol HCl 50 MG TAB PO SCH (21:15)
[2022-12-15] MEDS: cloNIDine 0.1 MG TAB PO SCH (21:29)
[2022-12-15] MEDS: Atorvastatin Calcium 40 MG TAB PO SCH (21:31)
[2022-12-15] MEDS: DULoxetine 30 MG CAP PO SCH (21:31)
[2022-12-16] MEDS: Gabapentin 300 MG CAP PO SCH ×3 (08:06→20:37)
[2022-12-16] MEDS: tiZANidine HCl 4 MG TAB PO SCH ×3 (08:07→20:39)
[2022-12-16] MEDS: Amlodipine 10 MG TAB PO SCH (08:07)
[2022-12-16] MEDS: HYDROcodone/Acetaminophen 10/325 mg Tablet PO PRN ×3 (08:14→21:31)
[2022-12-16] MEDS ORDERED: Polyethylene Glycol 3350 17 GM Packet PO PRN (15:43)
[2022-12-16] MEDS: cloNIDine 0.1 MG TAB PO SCH (20:38)
[2022-12-16] MEDS: Multivit, Therapeutic 1 TAB PO SCH (20:40)
[2022-12-16] MEDS: DULoxetine 30 MG CAP PO SCH (20:40)
[2022-12-16] MEDS: Atorvastatin Calcium 40 MG TAB PO SCH (20:40)
[2022-12-16] MEDS: hydrOXYzine 25 MG TAB PO PRN (20:50)
[2022-12-17] MEDS: HYDROcodone/Acetaminophen 10/325 mg Tablet PO PRN ×3 (04:38→21:46)
[2022-12-17] MEDS: Amlodipine 10 MG TAB PO SCH (10:07)
[2022-12-17] MEDS: tiZANidine HCl 4 MG TAB PO SCH ×3 (10:07→21:33)
[2022-12-17] MEDS: Gabapentin 300 MG CAP PO SCH ×3 (10:07→21:29)
[2022-12-17] MEDS ORDERED: Magnevist 469MG/ML 20 ML VIAL ONE (12:16)
[2022-12-17] MEDS ORDERED: Glucagon 1 MG/ML KIT IM PRN (15:22)
[2022-12-17] MEDS ORDERED: Dextrose 50% Abboject 50 ML SYRINGE SLOW IVP PRN (15:22)
[2022-12-17] MEDS ORDERED: Dextrose 5% in Water 1,000 ML IV PRN (15:22)
[2022-12-17] MEDS ORDERED: Insulin Regular 300 UNITS/3 ML VIAL SC PRN (15:22)
[2022-12-17] MEDS ORDERED: methylPREDNISolone Sod Succ/PF 125 MG/2 ML VIAL IVP SCH (15:30)
[2022-12-17] MEDS: methylPREDNISolone Sod Succ 1 GM in Sodium Chloride 0.9% 100 ML IVPB SCH (17:48)
[2022-12-17] MEDS: Multivit, Therapeutic 1 TAB PO SCH (21:30)
[2022-12-17] MEDS: Atorvastatin Calcium 40 MG TAB PO SCH (21:31)
[2022-12-17] MEDS: DULoxetine 30 MG CAP PO SCH (21:31)
[2022-12-17] MEDS: cloNIDine 0.1 MG TAB PO SCH (21:31)
[2022-12-17] MEDS: hydrOXYzine 25 MG TAB PO PRN (21:47)
[2022-12-18] MEDS: Insulin Regular 300 UNITS/3 ML VIAL SC PRN ×3 (07:31→17:33)
[2022-12-18] MEDS: Gabapentin 300 MG CAP PO SCH ×3 (11:16→22:03)
[2022-12-18] MEDS: tiZANidine HCl 4 MG TAB PO SCH ×3 (11:16→22:02)
[2022-12-18] MEDS: Amlodipine 10 MG TAB PO SCH (11:17)
[2022-12-18] MEDS: HYDROcodone/Acetaminophen 10/325 mg Tablet PO PRN ×2 (11:23→18:37)
[2022-12-18] MEDS: methylPREDNISolone Sod Succ 1 GM in Sodium Chloride 0.9% 100 ML IVPB SCH (17:31)
[2022-12-18] MEDS: cloNIDine 0.1 MG TAB PO SCH (21:47)
[2022-12-18] MEDS: Multivit, Therapeutic 1 TAB PO SCH (21:47)
[2022-12-18] MEDS: DULoxetine 30 MG CAP PO SCH (21:47)
[2022-12-18] MEDS: Atorvastatin Calcium 40 MG TAB PO SCH (21:47)
[2022-12-18] MEDS: hydrOXYzine 25 MG TAB PO SCH (21:48)
[2022-12-19 04:37] LABS: #Eosinphils 0.1 10x3/uL (0.0-0.5); #Monocytes 0.1 10x3/uL (0.0-1.1); #Neutrophils 21.3 10x3/uL (1.5-8.4); %Basophils 0.1 % (0.0-2.0); %Eosinophils 0.3 % (0.0-6.0); %Lymphocytes 3.9 % (18.0-47.0); %Monocytes 0.6 % (0.0-10.0); %Neutrophils 93.8 % (40.0-75.0); Hematocrit 34.8 % (34.9-44.5); Mean Corpuscular HGB CONC 34.5 g/dL (32.0-36.0); Mean Corpuscular Hemoglobin 30.3 pg (27.0-33.0); Mean Corpuscular Volume 87.9 fl (81.6-98.3); Mean Platelet Volume 9.7 fl (7.4-10.4); Platelet Count 351 10x3/uL (150-450); Red Blood Cell (RBC) Count 3.96 10x6/uL (3.90-5.03); White Blood Cell (WBC) Count 22.7 10x3/uL (3.5-10.5)
[2022-12-19 04:47] LABS: ALT (SGPT) 26 U/L (8-55); AST (SGOT) 18 U/L (5-34); Albumin 3.9 g/dL (3.5-5.0); Alkaline Phosphatase 61 U/L (40-110); Anion Gap 13 mmol/L (10-20); BUN (Urea Nitrogen) 17 mg/dL (9.8-20.1); Bilirubin, Direct 0.1 mg/dL (0.1-0.3); Bilirubin, Total 0.3 mg/dL (0.2-1.2); Calc. Creatinine Clearance 107 mL/min (70-130); Calcium 9.5 mg/dL (7.8-10.44); Carbon Dioxide 25 mmol/L (22-29); Chloride 102 mmol/L (98-107); Estimated GFR 79; Glucose 237 mg/dL (70-105); Potassium 4.3 mmol/L (3.5-5.1); Protein, Total 6.7 g/dL (6.0-8.3); Sodium 136 mmol/L (136-145)
[2022-12-19] MEDS: tiZANidine HCl 4 MG TAB PO SCH ×3 (09:49→20:43)
[2022-12-19] MEDS: Amlodipine 10 MG TAB PO SCH (09:49)
[2022-12-19] MEDS: Gabapentin 300 MG CAP PO SCH ×3 (09:50→20:46)
[2022-12-19] MEDS: Insulin Regular 300 UNITS/3 ML VIAL SC PRN ×3 (09:52→18:22)
[2022-12-19] MEDS: HYDROcodone/Acetaminophen 10/325 mg Tablet PO PRN ×2 (11:07→21:26)
[2022-12-19] MEDS ORDERED: traZODone HCl 50 MG TAB PO PRN (13:02)
[2022-12-19] MEDS: methylPREDNISolone Sod Succ 1 GM in Sodium Chloride 0.9% 100 ML IVPB SCH (16:14)
[2022-12-19] MEDS: Multivit, Therapeutic 1 TAB PO SCH (20:45)
[2022-12-19] MEDS: cloNIDine 0.1 MG TAB PO SCH (20:45)
[2022-12-19] MEDS: Melatonin 3 MG TAB PO SCH (20:47)
[2022-12-19] MEDS: Atorvastatin Calcium 40 MG TAB PO SCH (20:48)
[2022-12-19] MEDS: hydrOXYzine 25 MG TAB PO SCH (20:48)
[2022-12-19] MEDS: DULoxetine 30 MG CAP PO SCH (20:48)
[2022-12-20 04:45] LABS: #Monocytes 0.2 10x3/uL (0.0-1.1); #Neutrophils 19.6 10x3/uL (1.5-8.4); %Basophils 0.1 % (0.0-2.0); %Lymphocytes 4.7 % (18.0-47.0); %Monocytes 1.1 % (0.0-10.0); %Neutrophils 92.4 % (40.0-75.0); Hematocrit 35.4 % (34.9-44.5); Hemoglobin 12.2 g/dL (12.0-15.5); Mean Corpuscular HGB CONC 34.5 g/dL (32.0-36.0); Mean Corpuscular Hemoglobin 30.3 pg (27.0-33.0); Mean Corpuscular Volume 88.1 fl (81.6-98.3); Mean Platelet Volume 9.8 fl (7.4-10.4); Platelet Count 345 10x3/uL (150-450); RBC Distribution Width 12.2 % (11.5-14.5); Red Blood Cell (RBC) Count 4.02 10x6/uL (3.90-5.03); White Blood Cell (WBC) Count 21.2 10x3/uL (3.5-10.5)
[2022-12-20 05:04] LABS: Anion Gap 14 mmol/L (10-20); BUN (Urea Nitrogen) 14 mg/dL (9.8-20.1); Calc. Creatinine Clearance 108 mL/min (70-130); Calcium 9.7 mg/dL (7.8-10.44); Carbon Dioxide 25 mmol/L (22-29); Chloride 100 mmol/L (98-107); Estimated GFR 80; Glucose 278 mg/dL (70-105); Potassium 4.2 mmol/L (3.5-5.1); Sodium 135 mmol/L (136-145)
[2022-12-20 06:48] LABS: Magnesium 2.1 mg/dL (1.6-2.6)
[2022-12-20] MEDS: Insulin Regular 300 UNITS/3 ML VIAL SC PRN (07:25)
[2022-12-20] MEDS: Gabapentin 300 MG CAP PO SCH ×3 (09:22→22:33)
[2022-12-20] MEDS: tiZANidine HCl 4 MG TAB PO SCH ×3 (09:23→22:43)
[2022-12-20] MEDS: Amlodipine 10 MG TAB PO SCH (09:23)
[2022-12-20] MEDS: HYDROcodone/Acetaminophen 10/325 mg Tablet PO PRN (09:30)
[2022-12-20] MEDS: Melatonin 3 MG TAB PO SCH (22:35)
[2022-12-20] MEDS: hydrOXYzine 25 MG TAB PO SCH (22:36)
[2022-12-20] MEDS: Atorvastatin Calcium 40 MG TAB PO SCH (22:38)
[2022-12-20] MEDS: Multivit, Therapeutic 1 TAB PO SCH (22:38)
[2022-12-20] MEDS: cloNIDine 0.1 MG TAB PO SCH (22:39)
[2022-12-20] MEDS: DULoxetine 30 MG CAP PO SCH (22:51)
[2022-12-21 04:36] LABS: #Neutrophils 11.4 10x3/uL (1.5-8.4); %Basophils 0.3 % (0.0-2.0); %Lymphocytes 19.5 % (18.0-47.0); %Monocytes 6.2 % (0.0-10.0); %Neutrophils 72.4 % (40.0-75.0); Hematocrit 38.8 % (34.9-44.5); Hemoglobin 13.1 g/dL (12.0-15.5); Mean Corpuscular HGB CONC 33.8 g/dL (32.0-36.0); Mean Corpuscular Hemoglobin 30.3 pg (27.0-33.0); Mean Corpuscular Volume 89.6 fl (81.6-98.3); Mean Platelet Volume 9.8 fl (7.4-10.4); Platelet Count 356 10x3/uL (150-450); RBC Distribution Width 12.3 % (11.5-14.5); Red Blood Cell (RBC) Count 4.33 10x6/uL (3.90-5.03); White Blood Cell (WBC) Count 15.7 10x3/uL (3.5-10.5)
[2022-12-21 04:48] LABS: Anion Gap 15 mmol/L (10-20); BUN (Urea Nitrogen) 18 mg/dL (9.8-20.1); Calc. Creatinine Clearance 100 mL/min (70-130); Calcium 9.5 mg/dL (7.8-10.44); Carbon Dioxide 25 mmol/L (22-29); Chloride 102 mmol/L (98-107); Estimated GFR 73; Glucose 140 mg/dL (70-105); Magnesium 2.1 mg/dL (1.6-2.6); Potassium 3.7 mmol/L (3.5-5.1); Sodium 138 mmol/L (136-145)
[2022-12-21] MEDS: Gabapentin 300 MG CAP PO SCH ×3 (10:04→21:37)
[2022-12-21] MEDS: Amlodipine 10 MG TAB PO SCH (10:04)
[2022-12-21] MEDS: tiZANidine HCl 4 MG TAB PO SCH ×3 (10:06→21:41)
[2022-12-21] MEDS ORDERED: Hydrochlorothiazide 25 MG TAB PO SCH ×2 (18:30→21:45)
[2022-12-21] MEDS: Multivit, Therapeutic 1 TAB PO SCH (21:37)
[2022-12-21] MEDS: DULoxetine 30 MG CAP PO SCH (21:39)
[2022-12-21] MEDS: Melatonin 3 MG TAB PO SCH (21:39)
[2022-12-21] MEDS: cloNIDine 0.1 MG TAB PO SCH (21:39)
[2022-12-21] MEDS: hydrOXYzine 25 MG TAB PO SCH (21:40)
[2022-12-21] MEDS: Atorvastatin Calcium 40 MG TAB PO SCH (21:40)
[2022-12-21] MEDS: Insulin Regular 300 UNITS/3 ML VIAL SC PRN (23:20)
[2022-12-22 04:08] LABS: Anion Gap 12 mmol/L (10-20); BUN (Urea Nitrogen) 19 mg/dL (9.8-20.1); Calc. Creatinine Clearance 98 mL/min (70-130); Calcium 9.2 mg/dL (7.8-10.44); Carbon Dioxide 29 mmol/L (22-29); Chloride 100 mmol/L (98-107); Estimated GFR 71; Glucose 159 mg/dL (70-105); Magnesium 2.1 mg/dL (1.6-2.6); Potassium 3.3 mmol/L (3.5-5.1); Sodium 138 mmol/L (136-145)
[2022-12-22] MEDS: tiZANidine HCl 4 MG TAB PO SCH ×3 (11:13→22:34)
[2022-12-22] MEDS: Amlodipine 10 MG TAB PO SCH (11:13)
[2022-12-22] MEDS: Hydrochlorothiazide 25 MG TAB PO SCH (11:13)
[2022-12-22] MEDS: Gabapentin 300 MG CAP PO SCH ×3 (11:14→22:33)
[2022-12-22] MEDS: Acetaminophen 325 MG TAB PO PRN (11:22)
[2022-12-22] MEDS ORDERED: Potassium Chloride 20 MEQ TAB PO SCH (13:45)
[2022-12-22] MEDS ORDERED: Electrolyte Replacement Protocol 1 EACH FS SCH (13:45)
[2022-12-22] MEDS: cloNIDine 0.1 MG TAB PO SCH (22:34)
[2022-12-22] MEDS: DULoxetine 30 MG CAP PO SCH (22:34)
[2022-12-22] MEDS: Multivit, Therapeutic 1 TAB PO SCH (22:34)
[2022-12-22] MEDS: Atorvastatin Calcium 40 MG TAB PO SCH (22:34)
[2022-12-22] MEDS: hydrOXYzine 25 MG TAB PO SCH (22:35)
[2022-12-22] MEDS: Melatonin 3 MG TAB PO SCH (22:35)
[2022-12-23 05:49] LABS: Anion Gap 12 mmol/L (10-20); BUN (Urea Nitrogen) 20 mg/dL (9.8-20.1); Calc. Creatinine Clearance 92 mL/min (70-130); Calcium 9.3 mg/dL (7.8-10.44); Carbon Dioxide 32 mmol/L (22-29); Chloride 99 mmol/L (98-107); Estimated GFR 66; Glucose 155 mg/dL (70-105); Magnesium 2.1 mg/dL (1.6-2.6); Potassium 3.8 mmol/L (3.5-5.1); Sodium 139 mmol/L (136-145)
[2022-12-23] MEDS: tiZANidine HCl 4 MG TAB PO SCH ×3 (08:28→21:50)
[2022-12-23] MEDS: Amlodipine 10 MG TAB PO SCH (08:29)
[2022-12-23] MEDS: Hydrochlorothiazide 25 MG TAB PO SCH (08:29)
[2022-12-23] MEDS: Gabapentin 300 MG CAP PO SCH ×3 (08:29→21:50)
[2022-12-23] MEDS: Acetaminophen 325 MG TAB PO PRN (08:30)
[2022-12-23] MEDS: hydrOXYzine 25 MG TAB PO PRN (14:58)
[2022-12-23] MEDS: DULoxetine 30 MG CAP PO SCH (21:51)
[2022-12-23] MEDS: Multivit, Therapeutic 1 TAB PO SCH (21:52)
[2022-12-23] MEDS: cloNIDine 0.1 MG TAB PO SCH (21:52)
[2022-12-23] MEDS: Atorvastatin Calcium 40 MG TAB PO SCH (21:54)
[2022-12-23] MEDS: hydrOXYzine 25 MG TAB PO SCH (21:54)
[2022-12-23] MEDS: Melatonin 3 MG TAB PO SCH (21:54)
[2022-12-24 05:15] LABS: Anion Gap 13 mmol/L (10-20); BUN (Urea Nitrogen) 15 mg/dL (9.8-20.1); Calc. Creatinine Clearance 96 mL/min (70-130); Carbon Dioxide 30 mmol/L (22-29); Chloride 98 mmol/L (98-107); Estimated GFR 69; Glucose 182 mg/dL (70-105); Magnesium 1.9 mg/dL (1.6-2.6); Potassium 4.3 mmol/L (3.5-5.1); Sodium 137 mmol/L (136-145)
[2022-12-24] MEDS: Magnesium 2 GM/50 ML(in water) 2 GM in Premix Bag 1 BAG IVPB SCH ×2 (11:04→11:37)
[2022-12-24] MEDS: Gabapentin 300 MG CAP PO SCH (11:06)
[2022-12-24] MEDS: Amlodipine 10 MG TAB PO SCH (11:06)
[2022-12-24] MEDS: tiZANidine HCl 4 MG TAB PO SCH (11:07)
[2022-12-24] MEDS: Acetaminophen 325 MG TAB PO PRN (11:07)
[2022-12-24] MEDS: Hydrochlorothiazide 25 MG TAB PO SCH (11:07)
[2022-12-24] MEDS: hydrOXYzine 25 MG TAB PO PRN (11:08)
[2022-12-24 12:22] VITALS: BP 133/84; TEMP 98.1
== END 2022-12-24 14:00 | DRG 58 ==
LOC: CSHERS 11:56 → CSHTELE 17:03 → OBSVTOIN 12-16 11:47
PROVIDERS: ADMIT Internal Medicine; ATTEND Family Medicine
DX: G35 Multiple sclerosis (principal); I62.00 Nontraumatic subdural hemorrhage, unspecified; R55 Syncope and collapse; I10 Essential (primary) hypertension; Z79.899 Other long term (current) drug therapy; J45.909 Unspecified asthma, uncomplicated; Z88.8 Allergy status to other drugs, medicaments and biological substances; Z90.710 Acquired absence of both cervix and uterus; Z98.41 Cataract extraction status, right eye; E66.9 Obesity, unspecified; Z68.35 Body mass index [BMI] 35.0-35.9, adult; M47.892 Other spondylosis, cervical region; E78.5 Hyperlipidemia, unspecified
CPT/HCPCS: 36415; 36416; 70450; 70551; 70552; 71045; 72125; 72141; 80048; 80053; 80061; 80076; 83735; 83880; 84484; 85025; 85652; 86140; 93005; 93306; 96372; 96374; 96375; A9579; G0378; J1200; J1650; J1815; J2765; J2930; J3475; J3490